=== PATIENT | female | born 1960 | race Caucasian/White ===

== ENCOUNTER 2018-11-21 10:27 | Inpatient (IN) | payer BC, OTHER ==
[~2018-11-21] VITALS: Ht 160 cm; Wt 72.6 kg
[2018-11-21] MEDS ORDERED: ALPR2TAB7 PO (10:50)
[2018-11-21] MEDS ORDERED: ALBU8.5H8 INH (10:50)
[2018-11-21] MEDS ORDERED: FURO-152 PO (10:50)
[2018-11-21] MEDS ORDERED: SUMA50TA PO (10:50)
[2018-11-21 11:45] VITALS: BP 134/88
[2018-11-21] MEDS ORDERED: MAG HYDROX/AL HYDROX/SIMETH 30 ML LIQUID UDC PO PRN (12:15)
[2018-11-21] MEDS ORDERED: ACETAMINOPHEN 325 MG TABLET PO PRN (12:15)
[2018-11-21] MEDS ORDERED: MAGNESIUM HYDROXIDE 30 ML LIQUID UDC PO PRN (12:15)
[2018-11-21] MEDS ORDERED: LORAZEPAM 1 MG TABLET PO PRN (12:15)
[2018-11-21] MEDS ORDERED: BLOOD SUGAR DIAGNOSTIC 1 EACH STRIP VI ONE (12:15)
[2018-11-21] MEDS ORDERED: SUMATRIPTAN SUCCINATE 50 MG TABLET PO PRN (15:00)
[2018-11-21] MEDS ORDERED: ALBUTEROL SULFATE 8 GM HFA.AER.AD INH PRN (15:00)
[2018-11-21] MEDS ORDERED: ALBUTEROL SULFATE 2.5 MG/3 ML NEBU NEB PRN (15:45)
[2018-11-21 16:00] VITALS: BP 128/90
[2018-11-21 20:44] VITALS: BP 114/73
[2018-11-21] MEDS: risperiDONE 0.5 MG TABLET PO SCH (20:53)
[2018-11-21] MEDS: TRAZODONE 50 MG TABLET PO SCH (20:53)
[2018-11-21] MEDS: CLONAZEPAM 0.5 MG TABLET PO SCH (20:54)
[2018-11-22 08:04] LABS: BILIRUBIN,TOTAL 0.5 mg/dL (0.2-1.0); CREATININE 0.8 mg/dL (0.6-1.3); POTASSIUM 3.5 mmol/L (3.5-5.1); TOTAL PROTEIN, SERUM 7.5 g/dL (6.4-8.2)
[2018-11-22 08:08] LABS: BASOPHILS % (AUTO) 0.7 % (0.0-2.0); EOSINOPHILS # (AUTO) 0.1 K/uL (0.0-0.7); EOSINOPHILS % (AUTO) 1.7 % (0.0-7.0); HEMATOCRIT 42.1 % (31.2-41.9); HEMOGLOBIN 13.7 g/dL (10.9-14.3); LYMPHOCYTES # (AUTO) 1.6 K/uL (20.0-40.0); LYMPHOCYTES % (AUTO) 23.3 % (20.5-51.5); MEAN CORPUSCULAR HEMOGLOBIN 31.8 uug (24.7-32.8); MEAN CORPUSCULAR HGB CONC 33 g/dL (32.3-35.6); MEAN CORPUSCULAR VOLUME 97.4 fL (75.5-95.3); MONOCYTES # (AUTO) 0.7 K/uL (2.0-10.0); NEUTROPHILS # (AUTO) 4.3 K/uL (1.8-8.9); NEUTROPHILS % (AUTO) 64.3 % (38.5-71.5); PLATELET COUNT (AUTO) 286 K/uL (179-408); RED BLOOD CELL COUNT(AUTO) 4.32 MIL/uL (3.63-4.92); WHITE BLOOD COUNT (AUTO) 6.7 K/uL (3.8-11.8)
[2018-11-22] MEDS: risperiDONE 0.5 MG TABLET PO SCH ×2 (08:08→20:16)
[2018-11-22] MEDS: CLONAZEPAM 0.5 MG TABLET PO SCH ×3 (08:08→16:30)
[2018-11-22] MEDS: FUROSEMIDE 20 MG TABLET PO SCH (08:08)
[2018-11-22 08:38] VITALS: BP 119/80
[2018-11-22 09:38] LABS: MAGNESIUM 1.9 mg/dL (1.8-2.4)
[2018-11-22 09:55] LABS: THYROID STIMULATING HORMONE 1.364 mIU/mL (0.358-3.740)
[2018-11-22 16:42] VITALS: BP 125/83
[2018-11-22] MEDS: TRAZODONE 50 MG TABLET PO SCH (20:16)
[2018-11-22 20:21] VITALS: BP 119/78
[2018-11-22] MEDS: TEMAZEPAM 7.5 MG CAPSULE PO PRN (21:35)
[2018-11-23 07:42] VITALS: BP 93/69
[2018-11-23] MEDS: CLONAZEPAM 0.5 MG TABLET PO SCH ×3 (08:05→16:32)
[2018-11-23] MEDS: risperiDONE 0.5 MG TABLET PO SCH ×2 (08:06→20:18)
[2018-11-23] MEDS: FUROSEMIDE 20 MG TABLET PO SCH (08:16)
[2018-11-23 15:37] VITALS: BP 103/67
[2018-11-23 19:28] VITALS: BP 155/78
[2018-11-23] MEDS: TRAZODONE 50 MG TABLET PO SCH (20:18)
[2018-11-23] MEDS: TEMAZEPAM 7.5 MG CAPSULE PO PRN (21:09)
[2018-11-24 07:30] VITALS: BP 95/53
[2018-11-24] MEDS: risperiDONE 0.5 MG TABLET PO SCH ×2 (08:36→20:08)
[2018-11-24] MEDS: CLONAZEPAM 0.5 MG TABLET PO SCH ×3 (08:36→16:05)
[2018-11-24] MEDS: FUROSEMIDE 20 MG TABLET PO SCH (09:09)
[2018-11-24 15:25] VITALS: BP 105/75
[2018-11-24] MEDS: TRAZODONE 50 MG TABLET PO SCH (20:08)
[2018-11-24 20:41] VITALS: BP 117/69
[2018-11-24] MEDS: TEMAZEPAM 7.5 MG CAPSULE PO PRN (22:06)
[2018-11-25 07:30] VITALS: BP 104/65
[2018-11-25] MEDS: risperiDONE 0.5 MG TABLET PO SCH (08:05)
[2018-11-25] MEDS: CLONAZEPAM 0.5 MG TABLET PO SCH ×3 (08:05→16:13)
[2018-11-25] MEDS: FUROSEMIDE 20 MG TABLET PO SCH (08:05)
[2018-11-25] MEDS ORDERED: SUMATRIPTAN SUCCINATE 50 MG TABLET PO PRN (15:15)
[2018-11-25 15:16] VITALS: BP 117/77
== END 2018-11-25 17:45 | disposition still patient (30) | DRG 885 ==
LOC: ER 10:27 → GPS 11:29
PROVIDERS: ADMIT Psychiatry & Neurology Psychiatry; ATTEND Internal Medicine
DX: F29 Unspecified psychosis not due to a substance or known physiological condition (principal); I11.0 Hypertensive heart disease with heart failure; F41.9 Anxiety disorder, unspecified; I48.0 Paroxysmal atrial fibrillation; Z95.0 Presence of cardiac pacemaker; G89.29 Other chronic pain; F32.9 Major depressive disorder, single episode, unspecified; I50.9 Heart failure, unspecified; G43.909 Migraine, unspecified, not intractable, without status migrainosus; Z85.3 Personal history of malignant neoplasm of breast; Z90.12 Acquired absence of left breast and nipple; Z79.899 Other long term (current) drug therapy; M54.9 Dorsalgia, unspecified; Z87.442 Personal history of urinary calculi
CPT/HCPCS: 36415; 71045; 83735; 84100; 84443; 85025; 93005; A4663